=== PATIENT | female | born 1975 | race Caucasian/White ===

== ENCOUNTER → 2020-10-01 | Day surgery (SDC) | payer OTHER ==
[~2020-10-01] MED LIST: BENADRYL25 MG PO; CIPRO500 MG PO; COLACE 100MG C100 MG PO; HYDROCODON-ACE1 EAC4 PO; K-DUR TAB 20 M20 MEQ PO; MAGNESIUM500 MG PO; NAPROSYN EC 50500 MG PO; PERCOCET 5-3251 EACH PO; ZICAM PO; ZOFRAN 4 MG TAB4 MG PO; ZOFRAN ODT 4 MG4 MG SL
[2020-10-01 09:59] LABS: HEMOGLOBIN 15.2 gm/dl (12.3-15.3); RED BLOOD COUNT 4.71 M/UL (4.00-5.10); WHITE BLOOD COUNT 6.2 K/UL (4.5-11.0)
[2020-10-01 10:23] LABS: BUN/CREATININE RATIO 16 (0-10)
== END | disposition home or self-care (01) ==
LOC: OR 09:28
PROVIDERS: Obstetrics & Gynecology
DX: N90.60 Unspecified hypertrophy of vulva (principal); K60.2 Anal fissure, unspecified; F41.1 Generalized anxiety disorder; G47.00 Insomnia, unspecified; E66.9 Obesity, unspecified; Z68.29 Body mass index [BMI] 29.0-29.9, adult; Z79.899 Other long term (current) drug therapy; Z20.822 Contact with and (suspected) exposure to COVID-19
CPT/HCPCS: 36415; 80053; 85025; C1769; J0690; J1100; J1885; J2250; J2405; J2704; J2710; J2795; J3010; J7120; U0002